=== PATIENT | male | born 1950 | race Caucasian/White ===

== ENCOUNTER 2024-05-28 13:45 | Inpatient (IN) | payer OTHER, MEDICARE, SELFPAY ==
[2024-05-28] VITALS (54 sets, daily range): BP systolic 57–116; BP diastolic 22–82; PULSE 0–127; RESP 14–36; TEMP 35.8–36.5; O2SAT 25–100
--- NOTE | 2024-05-28 13:51 | EDNOTE_ITS ---
ED General RME/HPI General Stated complaint: SOB, HPYOTENSION Time Seen by Provider: 05/28/24 13:48 Arrival date/time: 05/28/24 13:45 RME / HPI RME / HPI narrative: 74 year old male with a history of multivessel CAD, s/p multivessel PCI, prostate cancer with widespread bone metastases, s/p prostatectomy, currently undergoing radiation therapy presents to the ED via ambulance for evaluation of acute onset shortness of breath. According to the EMS report, the patient?s stated that the patient suddenly became short of breath at home. Upon arrival, the fire department found the patient saturating 88% on room air, cyanotic nails and lips, and significant pallor. Blood pressure unable to be measured. In the ED, the patient reports a ground level fall around 2:30 AM today while attempting to get out of bed due to feeling globally weak. He denies any head injury, loss of consciousness, or other neurological deficits. The patient denies fever, chills, chest pain, cough, abdominal pain, nausea, vomiting, diarrhea, urinary symptoms, or back pain. Related Data Home Medications ?Medication ?Instructions ?Recorded ?Confirmed enzalutamide 40 mg capsule (Xtandi) 120 mg PO QDAY 04/21/20 05/02/20 aspirin 81 mg tablet 81 mg PO QDAY 04/29/20 05/02/20 clopidogrel 75 mg tablet (Plavix) 75 mg PO QDAY 04/29/20 05/02/20 metoprolol succinate 50 mg 50 mg PO QDAY 04/29/20 05/02/20 tablet,extended release 24 hr Allergies Allergy/AdvReac Type Severity Reaction Status Date / Time No Known Allergies Allergy Verified 05/02/20 11:06 Review of Systems Review of Systems Narrative Review of Systems: Constitutional: DENIES; Fevers Eyes: DENIES; Loss of vision Head/Ear/Nose: DENIES; Loss of hearing Throat: DENIES; Dysphagia Cardiovascular: DENIES; Chest pain, dyspnea or syncope Respiratory: SEE HPI +shortness of breath Gastrointestinal: DENIES; Rectal bleeding or melena. Genitourinary: DENIES; Dysuria (painful or difficult urination) Musculoskeletal: DENIES; Arthralgia (pain in a joint),; Skin: DENIES; Rash Neurological: SEE HPI +weakness DENIES; Loss of function or movement Psychiatric: DENIES; recent major life stressor, emotional problem, illicit drug use or abuse Endocrinology: DENIES; Weight change Hematologic/Lymphatic: DENIES; Abnormal bruising Allergic/Immunologic: DENIES; Urticaria (hives) Past Medical History Past Medical History CARDIAC: Positive Cardiac Disorders and Angina GASTROINTESTINAL: Positive Gastrointestinal Disorders, Ulcer, Hiatal Hernia and Gastroesophageal Reflux Disease GENITOURINARY: Positive Genitourinary Disorders, Prostate Cancer and Benign Prostatic Hyperplasia MUSCULOSKELETAL: Positive Musculoskeletal Disorders and Degenerative Disk Disease OTHER HISTORY: Positive Shingles, Chemotherapy, Radiation Therapy, Chicken Pox, Mumps, Cancer and Prostate Cancer Surgical History SURGICAL: Positive Cardiac Catheterization and Transurethral Resection Social History SMOKING STATUS: Never smoker ED Exam Narrative Physical exam: Physical Exam: General: Patient is brought in by ambulance for was put on high flow oxygen and transported here and on arrival he is actually breathing better not requiring any assistance. He is quite pale appearing Head & Scalp: Normocephalic, atraumatic. Face: Appears normal and is without lesions, deformity. Ears: Left external pinna appears normal. Right external pinna appears normal. Eyes: The sclera is anicteric. No obvious photophobia. The Left and Right Orbit/Lid/Conjunctiva appears pale otherwise without swelling, discoloration or injection. Nose: The nose is without deformity, discharge or tenderness; Throat: Appears normal. The mucous membranes are pink and moist without exudates, redness or mass seen. The tongue appears normal. Neck: The neck is supple and no apparent mass or adenopathy. Chest: The chest wall is normal in size and symmetry and has no chest wall tenderness or crepitus. The patient displays normal ventilator effort without retractions, accessory muscle use and has adequate air movement bilaterally with no wheezes and no rales. Cardiovascular: Regular rate and rhythm; No murmurs, rubs, or gallops; Gastrointestinal: The abdomen appears normal. No obvious hernias or mass. The abdomen is soft and benign, non-distended, with no pain, no guarding and no rebound tenderness. Bowel sounds are present and normal sounding. No CVA tenderness. Genitourinary: Back/Spine: Normal inspection nontender Extremities/Musculoskeletal/lymphatic: The bilateral upper and lower extremities are warm. There is no evidence of arterial insufficiency. There is no evidence of venous insufficiency/edema. The patient spontaneously moves bilateral upper and lower extremities with no pain and no limitation of movement. There is no apparent, injury or trauma. Skin: The skin is warm, dry and intact. No rashes. No petechia. No purpura. No abnormal bruising. The color is appropriate with no cyanosis. Mental status/Psychiatric: Mental status is appropriate for age. The patient has no apparent delusions, visual hallucinations, no apparent audible hallucinations. The patient has no apparent suicidal thoughts/ideation and no apparent homicidal thoughts/ideation. Neurological: The patient is awake, alert, interactive, cordial, cooperative and is oriented to name and situation. The patient follows commands and answers historical question with no impairment. There is no visual disturbance apparent. The pupils are equal and reactive bilaterally with normal eye movements and no diplopia The bilateral upper and lower extremities have normal strength, normal range of motion and normal functioning. The gait, station and balance are not tested due to acuity and weakness. Course Quality Measures none Orders Category Date Time Status Bedside Blood Glucose NOW Care 05/28/24 13:49 Active Bedside Blood Glucose Q2HX3 Care 05/28/24 15:30 Active EKG (ED ONLY) *Do not use* NOW Care 05/28/24 13:49 Completed EKG (ED ONLY) *Do not use* NOW Care 05/28/24 15:35 Completed Miscellaneous Nursing Order NOW Care 05/28/24 13:49 Active Transfuse,blood/blood products NEEDED Care 05/28/24 14:40 Active Transfuse,blood/blood products NOW Care 05/28/24 14:[address] head/brain wo con Stat Exams 05/28/24 13:49 Completed EKG (ED Only) Stat Exams 05/28/24 13:49 Ordered EKG (ED Only) Stat Exams 05/28/24 15:34 Ordered XR chest 1V portable Stat Exams 05/28/24 13:49 Completed ABG [Arterial Blood Gas] Stat Lab 05/28/24 16:33 Ordered Alcohol, Blood Medical Stat Lab 05/28/24 13:55 Completed Ammonia Stat Lab 05/28/24 13:55 Completed B-Type Natriuretic Peptide Stat Lab 05/28/24 13:55 Completed Blood Culture (Lab) Stat Lab 05/28/24 14:34 Received CBC Stat Lab 05/28/24 13:55 Completed Comprehensive Metabolic Panel Stat Lab 05/28/24 13:55 Completed Drug Screen,Urine Stat Lab 12/19/24 13:49 Ordered Ferritin Stat Lab 05/28/24 13:49 Results Folate Stat Lab 05/28/24 14:34 Completed Iron Stat Lab 05/28/24 13:49 Results Lactate (Lactic Acid) Stat Lab 05/28/24 13:55 Results Procalcitonin Stat Lab 05/28/24 13:55 Completed Prothrombin Time with INR Stat Lab 05/28/24 13:55 Completed Red Blood Cells Stat Lab 05/28/24 14:34 Results Total Iron Binding Capacity Stat Lab 05/28/24 13:49 Results Troponin I Stat Lab 05/28/24 13:55 Completed Troponin I Stat Lab 05/28/24 15:52 Completed Type and Screen Stat Lab 05/28/24 14:34 Results Urinalysis Stat Lab 05/28/24 13:49 Ordered Urinalysis, C/S if Indicated Stat Lab 05/28/24 13:49 Ordered Venous Blood Gas Stat Lab 05/28/24 13:55 Completed Vitamin B12 Stat Lab 05/28/24 14:34 Completed ALBUTEROL RT 0.5ml [Proventil Rt 0.5ml] Med 05/28/24 15:32 Discontinued 5 mg INH X1 ONE Calcium Gluconate 10% Inj Med 05/28/24 15:32 Discontinued 1 gm IV X1 ONE Dextrose 50% Syr [D50w Syringe Abboject] Med 05/28/24 15:32 Discontinued 50 ml IV X1 ONE Insulin Regular Med 05/28/24 15:32 Discontinued 5 unit IV X1 ONE Phytonadione Inj [Vitamin K Inj] Med 05/28/24 14:40 Discontinued 10 mg SC X1 ONE Piper/Tazo 3.375 gm [Zosyn] Med 05/28/24 15:34 Discontinued 3.375 gm in 50 ml IV X1 Sod Polystyrene Sulfon Susp [Kayexalate Susp] Med 05/28/24 15:32 Discontinued 30 gm [place] X1 ONE Sodium Bicarb 8.4% 50ml Vial* Med 05/28/24 15:32 Discontinued 50 meq IV X1 ONE Sodium Chloride 0.9% 1000 ml [Ns] 2,000 ml Med 05/28/24 13:48 Active IV 150 mls/hr Sodium Chloride 0.9% 250 ml [Ns] 234 ml Med 05/28/24 16:51 Discontinued EPINEPHrine Inj [Adrenalin Inj] 4 mg IV 0.1 mcg/kg/min Sodium Chloride 0.9% 250 ml [Ns] 246 ml Med 05/28/24 16:58 Active EPINEPHrine Inj [Adrenalin Inj] 4 mg IV 0.1 mcg/kg/min Sodium Chloride Rt Jeanne 0.9% [NS Rt Jeanne 0.9%] Med 05/28/24 15:32 Discontinued 3 ml INH NOW ONE fentaNYL 2,500 MCG/250 ML BAG [Sublimaze Inj 2,500 MCG/ Med 05/28/24 16:56 Discontinued 250 ML BAG] 2,500 mcg in 250 ml IV .STK-MED fentaNYL 2,500 MCG/250 ML BAG [Sublimaze Inj 2,500 MCG/ Med 05/28/24 17:03 Active 250 ML BAG] 2,500 mcg in 250 ml IV 25 mcg/hr fentaNYL INJ [Sublimaze Inj] Med 05/28/24 16:53 Discontinued 100 mcg .ROUTE .STK-MED ONE fentaNYL INJ [Sublimaze Inj] Med 05/28/24 16:57 Discontinued 50 mcg IVP X1 ONE Vital Signs Vital signs: Vital Signs Temperature 97.7 F 05/28/24 14:04 Pulse Rate 94 05/28/24 14:04 Respiratory Rate 29 H 05/28/24 14:04 Blood Pressure 104/82 05/28/24 14:04 Pulse Oximetry (%) 94 L 05/28/24 14:04 Oxygen Delivery Method Room Air 05/28/24 14:04 Pulse ox is 94% on room air which is adequate. MDM Patient data External records reviewed:: [facility] previous records (I reviewed oncology note on 02/20/2023) and EMS form Clinical information provided by:: patient Social determinants that could affect healthcare access:: none Patient has the following chronic illnesses:: multivessel CAD, s/p multivessel PCI, prostate cancer with widespread bone metastases, s/p prostatectomy, currently undergoing radiation therapy How is presenting disease/condition affected by chronic disease/condition?: e xacerbated by Evaluation data The following diagnostics were reviewed and interpreted by me:: lab results, radiology exam(s) and EKG tracing(s) (EKG @ 14:[address] depression with baseline wander due to respiratory movements, no STEMI) Lab and/or radiology exams considered but not ordered:: None Interpretation Summary: Ordering Physician: Raul Goddard MD Date of Service: 05/28/24 Procedure(s): XR chest 1V portable Accession Number(s): [id number] cc: Raul Goddard MD; Ramy Carreno MD~ Examination: AP chest single view Technique one AP portable semiupright chest single view Exam date and time: May 28, 2024 1437 hours INDICATIONS: Chest pain shortness of breath today., Diagnosis malignant neoplasm prostate FINDINGS: Mild prominence cardiac contour Suspicious for early pneumonia left base Mild elevation right hemidiaphragm All of the bones appear somewhat diffusely sclerotic,. IMPRESSION: Suspicious for early pneumonia left base Widespread osteoblastic metastatic disease Dictated By: Ramy Carreno MD Signed By: <Electronically signed by Ramy Carreno MD in [place]> 05/28/24 1535 = Ordering Physician: Raul Goddard MD Date of Service: 05/28/24 Procedure(s): CT head/brain wo con Accession Number(s): [id number] cc: Raul Goddard MD; Ramy Carreno MD~ Examination: CT brain head without contrast. 2-D sagittal coronal reconstructions Date and time of exam:May 28, 2024 1445 hours INDICATIONS: Episode of loss of consciousness today CTDI: vol (mGy):52.6 DLP: (mGycm):1165 Technique: Multiple CT axial sections of the brain have been obtained, 5 mm slice thickness. Contrast has not been administered. 2-D sagittal, coronal reconstructions have been obtained Low dose protocols were performed. One or more of the following dose reduction techniques were used; automated exposure control, adjustment of the mA and/or KV according to patient size, use of iterative reconstruction technique. Findings: No significant ventricular enlargement. Intra-axial or extra-axial hemorrhage density is not seen. No mass effect or midline shift Basal cisterns are not remarkable. Fourth ventricle is midline. Cranial vault intact. Impression: Negative for acute hemorrhage, mass effect or midline shift Advise clinical correlation and follow-up accordingly Dictated By: Ramy Carreno MD Signed By: <Electronically signed by Ramy Carreno MD in [place]> 05/28/24 1542 Medications Medications considered but not ordered:: None Medication administrations:: Medication Administration History Sodium Chloride (Ns) 2,000 mls @ 150 mls/hr IV .[id number] ONE Stop: 05/29/24 03:07 Last Admin: 05/28/24 14:33 Dose: 150 mls/hr Documented By: AM Epinephrine HCl 4 mg/ Sodium (Chloride) 250 mls @ 33.75 mls/hr IV .Q7H25M PRN; Protocol PRN Reason: Per Protocol Stop: 06/27/24 16:50 Last Admin: 05/28/24 17:03 Dose: 0.1 mcg/kg/min, 33.75 mls/hr Documented By: VRS Fentanyl Citrate (Sublimaze Inj 2,500 Mcg/250 Ml Bag) 2,500 mcg in 250 mls @ 2.5 mls/hr IV .Q24H PRN; Protocol PRN Reason: PER PROTOCOL Stop: 06/02/24 17:02 Discontinued Medications Albuterol (Albuterol Rt 2.5 Mg/0.5 Ml Nebu) 5 mg INH X1 ONE Stop: 05/28/24 15:33 Last Admin: 05/28/24 16:12 Dose: 5 mg Documented By: LO Calcium Gluconate (Calcium Gluconate 10% Inj 1 Gm/10 Ml Vial) 1 gm IV X1 ONE Stop: 05/28/24 15:33 Last Admin: 05/28/24 16:24 Dose: 1 gm Documented By: AM Dextrose (Dextrose 50%-Water Inj 50 Ml Syringe) 50 ml IV X1 ONE Stop: 05/28/24 15:33 Last Admin: 05/28/24 16:17 Dose: 50 ml Documented By: AM Fentanyl Citrate (Fentanyl Cit Inj 50 Mcg/Ml Amp 2ml) 50 mcg IVP X1 ONE Stop: 05/28/24 16:58 Last Admin: 05/28/24 16:59 Dose: 50 mcg Documented By: AM Fentanyl Citrate (Fentanyl Cit Inj 50 Mcg/Ml Amp 2ml) Confirm Administered Dose 100 mcg .ROUTE .STK-MED ONE Stop: 05/28/24 16:54 Last Admin: 05/28/24 17:04 Dose: Not Given Documented By: AM Non-Admin Reason: Override Medication Piperacillin/Tazobactam/Dextrose (Zosyn) 3.375 gm in 50 mls @ 100 mls/hr IV X1 ONE Stop: 05/28/24 16:03 Last Admin: 05/28/24 16:20 Dose: 100 mls/hr Documented By: AM Epinephrine HCl 4 mg/ Sodium (Chloride) 238 mls @ 32.13 mls/hr IV .Q7H25M PRN; Protocol PRN Reason: Per Protocol Stop: 06/27/24 16:50 Fentanyl Citrate (Sublimaze Inj 2,500 Mcg/250 Ml Bag) Confirm Administered Dose 2,500 mcg in 250 mls @ ud IV .STK-MED ONE Stop: 05/28/24 16:57 Insulin Human Regular (Insulin Hum Regular 1 Unit/0.01 Ml (Per Unit)) 5 unit IV X1 ONE Stop: 05/28/24 15:33 Last Admin: 05/28/24 16:18 Dose: Not Given Documented By: AM Non-Admin Reason: Glucose, LOW Phytonadione (Phytonadione Inj 10 Mg/Ml Amp) 10 mg SC X1 ONE Stop: 05/28/24 14:41 Last Admin: 05/28/24 16:21 Dose: 10 mg Documented By: AM Sodium Bicarbonate (Sodium Bicarb Inj 8.4% 1 Meq/Ml Vial 50 Ml) 50 meq IV X1 ONE Stop: 05/28/24 15:33 Last Admin: 05/28/24 16:55 Dose: Not Given Documented By: AM Non-Admin Reason: Other, see note Sodium Chloride (Sodium Chloride Rt Jeanne 0.9% 3 Ml Nebu) 3 ml INH NOW ONE Stop: 05/28/24 15:33 Last Admin: 05/28/24 16:12 Dose: 3 ml Documented By: LO Sodium Polystyrene Sulfonate (Sod Polystyrene Sulfon Susp 15 Gm/60 Ml Btl) 30 gm [place] X1 ONE Stop: 05/28/24 15:33 Last Admin: 05/28/24 16:24 Dose: 30 gm Documented By: AM See above Consultations Consultation(s) initiated? (list below): Yes Consultation #1 (Physician, Specialty, Details): I spoke with resident working with Dr. Arreola. Discussed patients PMHx, HPI, ED course, exam findings, labs, and radiology results. The hospitalist agree to accept the patient for admission. Time: 15:27 Diagnosis Differential Diagnosis ED Complaint MDM: Sepsis, SOB, CHF, PNA, COPD, anemia Most likely diagnosis given after review of the tests above:: Severe anemia Weakness Malignant neoplasm of prostate metastatic to bone elevated lactic acid level Admission Indicated Admission indicated?: indicated Explain why admission is indicated or not indicated:: Patient is critically ill with hyperkalemia severe anemia prostate cancer with bone mets elevated troponin probable recent ischemic injury due to anemia and/or heart disease admitted to ICU team Admission Request Was there a request for admission?: Yes Admission Attestation Admission request attestation: Discussed case with [] from Hospitalist service regarding admission. Discussed patients ED course, exam findings, labs, and radiology results. The Hospitalist [agrees,declines] to accept the patient for admission. Disposition Plan Disposition Plan: Admit Medical Decision Making MDM Narrative MDM Narrative: A quick review of the chart reveals this patient has prostate cancer with metastatic bone disease quite extensive on previous notes. Evidently is followed by Dr. Ramirez at [facility]. Patient was found basically unresponsive at the home called 911 EMS got there felt the patient was in respiratory distress started assisting his respirations transported here with high flow oxygen and by time he got here he was mentating he was not in respiratory distress and he was maintaining his O2 sats with high flow oxygen. He was quite pale on arrival he is on Plavix but there was no history of bleeding that was reported. So medical workup was initiated. Which included a portable chest x-ray soon after arrival which reveals slightly enlarged heart, questionable infiltrate, evidence of diffuse bone mets no effusion poor inspiration CT of the head revealed some atrophy but there is no blood present. Medical workup includes procalcitonin and of 1.16 troponin was quite elevated at 24.3 BNP is 513 also elevated. AST and ALT are elevated 833 and 215 respectively lactic acid is elevated 11.3 patient has significant potassium elevation at 6.7 and medicines were ordered. Carbon dioxide of 10.7 consistent with a metabolic acidosis. And was normal at that time. Venous blood gas pH is 7.26 pCO2 of 24 PT/INR 15.4 and 1.4. And most importantly his white count was 11.9 but hemoglobin came back at 5.9 significant less than his baseline year and a half ago. A rectal exam was done by myself which revealed no blood there is brown stool. There is no fecal impaction and there is no obvious rectal mass. But no it is prostate is high riding and hard to reach. Patient is a full code and confirmed by EMS and with the and patient present he is going to get 2 units of blood as soon as possible patient was verbally and orally consented. Because of the hyperkalemia acute renal failure and presumably is from his anemia though he is not complain of any chest pain at this time. Initial EKG showed a lot of baseline wander in due to his respiratory distress. I spoke with the hospitalist about admission I also spoke with Dr. Andres critical care About consulting and they are going to come down see this patient make a decision of where would be the best place for him to stay for the next 12 hours and start this out further. Patient will be critical care for obvious reasons. Clinically he is improved since he has been on oxygen and also got some fluids. I Dr. Faria's team came down and saw this patient at approximately 1600 hrs. They decided to minimally ICU and while they are working him up in the room, evidently he bradycardia down and went into cardiac arrest and the ICU team is currently reassessing the patient at 1640 hrs. and the care was transferred to the ICU team upon their arrival. Differential Diagnosis Differential Diagnosis: Sepsis, SOB, CHF, PNA, COPD, anemia Lab Data 05/28/24 13:55 05/28/24 13:55 Labs: Lab Results 05/28/24 05/28/24 05/28/24 Range/Units 13:49 13:55 14:30 WBC 11.9 H (3.8-10.6) Thou/mm3 RBC 2.09 L (4.50-5.90) Miln/mm3 Hgb 5.9 L* (13.5-16.0) g/dL Hct 19.8 L* (41.0-53.0) % MCV 95 (80-100) fL MCH 28.2 (25.0-35.0) pg MCHC 29.8 L (31.0-37.0) g/dl RDW Std Deviation 65.4 H (35.1-43.9) fL Plt Count 166 (140-440) Thou/mm3 Neut % (Auto) 45 (37-80) % Lymph % (Auto) 46 (10-50) % [place] % (Auto) 6 (0-12) % Eos % (Auto) 1 (0-10) % Baso % (Auto) 0 (0-2.5) % Neut # (Auto) 5.4 (1.8-7.7) Thou/mm3 Lymph # (Auto) 5.5 H (1.0-4.8) Thou/mm3 [place] # (Auto) 0.8 (0.0-0.8) Thou/mm3 Eos # (Auto) 0.1 (0.0-0.5) Thou/mm3 Baso # (Auto) 0.0 (0.0-0.2) Thou/mm3 Immature Gran # (Auto) 0.26 H (0.00-0.00) Thou/mm3 Absolute Nucleated RBC 0.20 H (0.00-0.00) Thou/mm3 Immature Gran % 2 H (0-0) % Nucleated RBC % 2 H (0) /100 WBC PT 15.4 H (9.0-12.2) Seconds INR 1.4 H (0.9-1.3) Puncture Site Cancelled ABG pH Cancelled ABG pCO2 Cancelled ABG pO2 Cancelled ABG HCO3 Cancelled ABG O2 Saturation Cancelled ABG Base Excess Cancelled VBG pH 7.26 L (7.33-7.66) VBG pCO2 24 L (36-56) mmHg VBG pO2 58 (15-58) mmHg VBG O2 Sat (Denys) 80 L (96-97) % VBG Base Excess -15 L (-3-3) Oxygen Liter Flow Cancelled FiO2 Cancelled Sodium 130 L (136-145) mMol/L Potassium 6.7 H* (3.4-5.1) mMol/L Chloride 98 (98-107) mMol/L Carbon Dioxide 10.7 L* (20.0-31.0) mMol/L Anion Gap 21 H (7-16) BUN 39 H (9-23) mg/dL Creatinine 2.3 H (0.6-1.3) mg/dL Estim Creat Clear Calc Not Performed. eGFR 29 L (60 - ) See Note BUN/Creatinine Ratio 17 (12-20) Ratio Glucose 75 (74-106) mg/dL Calculated Osmolality 269 L (275-295) Lactic Acid 11.3 H* (0.4-2.0) mMol/L Calcium 9.3 (8.3-10.6) mg/dL Corrected Calcium 9.3 (8.5-10.1) mg/dL TIBC 261 (250-425) mcg/dL Ferritin > 8250 H (10.5-307.3) ng/mL Total Bilirubin 1.1 (0.3-1.2) mg/dL AST 833 H* (0-34) U/L ALT 215 H (10-49) U/L Alkaline Phosphatase 565 H (46-116) U/L Ammonia 43 H (11-32) uMol/L Troponin I 24.324 H* (0.0-0.045) ng/mL B-Natriuretic Peptide 513 H* (0-100) pg/mL Total Protein 7.1 (5.7-8.2) gm/dL Albumin 4.5 (3.4-4.8) gm/dL Globulin 2.6 (2.3-3.5) gm/dL Albumin/Globulin Ratio 1.7 (1.2-2.2) Vitamin B12 (211-911) pg/mL Folate (>5.38) ng/mL Procalcitonin 1.16 H (0.0-0.49) ng/ml Ethyl Alcohol < 3.0 (0-10.0) mg/dL Blood Type Antibody Screen Crossmatch Blood Bank Wristband ID 05/28/24 05/28/24 Range/Units 14:34 15:52 WBC (3.8-10.6) Thou/mm3 RBC (4.50-5.90) Miln/mm3 Hgb (13.5-16.0) g/dL Hct (41.0-53.0) % MCV (80-100) fL MCH (25.0-35.0) pg MCHC (31.0-37.0) g/dl RDW Std Deviation (35.1-43.9) fL Plt Count (140-440) Thou/mm3 Neut % (Auto) (37-80) % Lymph % (Auto) (10-50) % [place] % (Auto) (0-12) % Eos % (Auto) (0-10) % Baso % (Auto) (0-2.5) % Neut # (Auto) (1.8-7.7) Thou/mm3 Lymph # (Auto) (1.0-4.8) Thou/mm3 [place] # (Auto) (0.0-0.8) Thou/mm3 Eos # (Auto) (0.0-0.5) Thou/mm3 Baso # (Auto) (0.0-0.2) Thou/mm3 Immature Gran # (Auto) (0.00-0.00) Thou/mm3 Absolute Nucleated RBC (0.00-0.00) Thou/mm3 Immature Gran % (0-0) % Nucleated RBC % (0) /100 WBC PT (9.0-12.2) Seconds INR (0.9-1.3) Puncture Site ABG pH ABG pCO2 ABG pO2 ABG HCO3 ABG O2 Saturation ABG Base Excess VBG pH (7.33-7.66) VBG pCO2 (36-56) mmHg VBG pO2 (15-58) mmHg VBG O2 Sat (Denys) (96-97) % VBG Base Excess (-3-3) Oxygen Liter Flow FiO2 Sodium (136-145) mMol/L Potassium (3.4-5.1) mMol/L Chloride (98-107) mMol/L Carbon Dioxide (20.0-31.0) mMol/L Anion Gap (7-16) BUN (9-23) mg/dL Creatinine (0.6-1.3) mg/dL Estim Creat Clear Calc eGFR (60 - ) See Note BUN/Creatinine Ratio (12-20) Ratio Glucose (74-106) mg/dL Calculated Osmolality (275-295) Lactic Acid (0.4-2.0) mMol/L Calcium (8.3-10.6) mg/dL Corrected Calcium (8.5-10.1) mg/dL TIBC (250-425) mcg/dL Ferritin (10.5-307.3) ng/mL Total Bilirubin (0.3-1.2) mg/dL AST (0-34) U/L ALT (10-49) U/L Alkaline Phosphatase (46-116) U/L Ammonia (11-32) uMol/L Troponin I 29.781 H* D (0.0-0.045) ng/mL B-Natriuretic Peptide (0-100) pg/mL Total Protein (5.7-8.2) gm/dL Albumin (3.4-4.8) gm/dL Globulin (2.3-3.5) gm/dL Albumin/Globulin Ratio (1.2-2.2) Vitamin B12 1946 H (211-911) pg/mL Folate 22.03 (>5.38) ng/mL Procalcitonin (0.0-0.49) ng/ml Ethyl Alcohol (0-10.0) mg/dL Blood Type A Positive Antibody Screen NEGATIVE Crossmatch See Detail Blood Bank Wristband ID Yes Critical Care Time Critical Care Time Critical Care Time: Yes Total Critical Care Time (min.): 75 Attestation: The high probability of sudden, clinically significant deterioration in the patient's condition required the highest level of my preparedness to intervene urgently. The services I provided to this patient were to treat and/or prevent clinically significant deterioration. Services included the following: chart data review, reviewing nursing notes and/or old charts, documentation time, skin care consultant collaboration regarding findings and treatment options, medication orders and management, direct patient care, vital sign assessments and ordering, interpreting and reviewing diagnostic studies and lab tests. Aggregate critical care time includes only time during which I was engaged in work directly related to the patient's care, as described above, whether at bedside or elsewhere in the Emergency Department. It did not include time spent performing other reported procedures or the services of residents, students, nurses or physician assistants. Patient required several evaluations and reevaluations along with multiple consultations as mentioned above and is consumed at least 75 minutes of critical care time. Also because we were unable to get a Boo and because he has a prostate issues and or cancer no UA was able to be collected at this time so we will start him on some Zosyn. Since his lactic acid is so elevated. Discharge Plan Plan Patient Disposition: Admit Acute Care w/in Hospital Disposition Comment: Admit ICU Dr. oCte Prescriptions/Referrals Prescriptions/Med Rec: No Action metoprolol succinate 50 mg Tablet Extended Release 24 Hr 50 mg PO QDAY clopidogrel [Plavix] 75 mg Tablet 75 mg PO QDAY aspirin 81 mg Tablet 81 mg PO QDAY Xtandi 40 mg Capsule 120 mg PO QDAY Problem List Clinical Impression: Severe anemia, Weakness, Malignant neoplasm of prostate metastatic to bone, Elevated lactic acid level, Acute kidney injury, Acute hyperkalemia, Elevated troponin Patient/Caregiver Discharge Instructions Print Language: Tajik Stand Alone Forms: Maty Award Info., Patient Portal Info Letter
[2024-05-28 14:24] LABS: Base Excess, Venous -15 (-3-3); O2 Saturation, Venous 80 % (96-97); PCO2, Venous 24 mmHg (36-56); PO2, Venous 58 mmHg (15-58); pH, Venous 7.26 (7.33-7.66)
[2024-05-28 14:29] LABS: Basophils % (Auto) 0 % (0-2.5); Eosinophils # (Auto) 0.1 Thou/mm3 (0.0-0.5); Eosinophils % (Auto) 1 % (0-10); Immature Granulocytes % (Auto) 2 % (0-0); Immature Granulocytes Auto 0.26 Thou/mm3 (0.00-0.00); Lymphocytes # (Auto) 5.5 Thou/mm3 (1.0-4.8); Lymphocytes % (Auto) 46 % (10-50); Mean Corpuscular HGB Conc 29.8 g/dl (31.0-37.0); Mean Corpuscular Hemoglobin 28.2 pg (25.0-35.0); Mean Corpuscular Volume 95 fL (80-100); Monocytes # (Auto) 0.8 Thou/mm3 (0.0-0.8); Monocytes % (Auto) 6 % (0-12); Neutrophils # (Auto) 5.4 Thou/mm3 (1.8-7.7); Neutrophils % (Auto) 45 % (37-80); Nucleated Red Blood Cell % 2 /100 WBC (0); Platelet Count 166 Thou/mm3 (140-440); RDW Standard Deviation 65.4 fL (35.1-43.9); Red Blood Count 2.09 Miln/mm3 (4.50-5.90); White Blood Count 11.9 Thou/mm3 (3.8-10.6)
[2024-05-28] MEDS: SODIUM CHLORIDE 0.9% 1000 ML 2,000 ML 150 ML IV (14:33)
[2024-05-28 14:35] LABS: Hematocrit 19.8 % (41.0-53.0); Hemoglobin 5.9 g/dL (13.5-16.0)
[2024-05-28 14:41] LABS: Lactate (Lactic Acid) 11.3 mMol/L (0.4-2.0)
[2024-05-28 14:45] LABS: Ammonia 43 uMol/L (11-32)
--- NOTE | 2024-05-28 14:46 | PC.NURSE ---
pt off to CT. RT contacted about redraw needed for ABG.
[2024-05-28 14:47] LABS: INR 1.4 (0.9-1.3); Prothrombin Time 15.4 Seconds (9.0-12.2)
--- NOTE | 2024-05-28 14:51 | PC.NURSE ---
lactic 11.6, hgb 5.9/ hct 19.8, Dr. Orozco aware.
[2024-05-28 15:06] LABS: B-Type Natriuretic Peptide 513 pg/mL (0-100)
[2024-05-28 15:19] LABS: Alanine Aminotransferase 215 U/L (10-49); Albumin, Serum 4.5 gm/dL (3.4-4.8); Albumin/Globulin Ratio 1.7 (1.2-2.2); Alcohol, Blood Medical < 3.0 mg/dL (0-10.0); Alkaline Phosphatase 565 U/L (46-116); Anion Gap 21 (7-16); Aspartate Amino Transferase 833 U/L (0-34); BUN/Creatinine Ratio 17 Ratio (12-20); Bilirubin,Total 1.1 mg/dL (0.3-1.2); Blood Urea Nitrogen 39 mg/dL (9-23); Calcium 9.3 mg/dL (8.3-10.6); Calcium (Corrected) 9.3 mg/dL (8.5-10.1); Chloride 98 mMol/L (98-107); Creatinine (Component) 2.3 mg/dL (0.6-1.3); Globulin 2.6 gm/dL (2.3-3.5); Glucose 75 mg/dL (74-106); Osmolality,Calculated 269 (275-295); Procalcitonin 1.16 ng/ml (0.0-0.49); Sodium 130 mMol/L (136-145); Total Protein 7.1 gm/dL (5.7-8.2); eGFR 29 See Note
[2024-05-28 15:23] LABS: Carbon Dioxide 10.7 mMol/L (20.0-31.0); Potassium 6.7 mMol/L (3.4-5.1)
[2024-05-28 15:24] LABS: Troponin I 24.324 ng/mL (0.0-0.045)
[2024-05-28] MEDS: ALBUTEROL RT 2.5 MG/0.5 ML NEBU 5 MG INH (16:12)
[2024-05-28] MEDS: SODIUM CHLORIDE RT SOL 0.9% 3 ML NEBU INH (16:12)
[2024-05-28] MEDS: DEXTROSE 50%-WATER INJ 50 ML SYRINGE IV (16:17)
[2024-05-28] MEDS: PIPER/TAZO 3.375 GM 3.375 GM/50 ML BAG IV (16:20)
[2024-05-28] MEDS: PHYTONADIONE INJ 10 MG/ML AMP SC (16:21)
[2024-05-28] MEDS: SOD POLYSTYRENE SULFON SUSP 15 GM/60 ML BTL 30 GM PR (16:24)
[2024-05-28] MEDS: CALCIUM GLUCONATE 10% INJ 1 GM/10 ML VIAL IV (16:24)
[2024-05-28 16:32] LABS: Folate 22.03 ng/mL (>5.38); Vitamin B12 1946 pg/mL (211-911)
--- NOTE | 2024-05-28 16:38 | PC.CC ---
ASWLou responded to code blue. ASW attempted to make contact with patient's , Elizabeth Kingston 3x via telephone no answer or voicemail set up.
[2024-05-28 16:41] LABS: Troponin I 29.781 ng/mL (0.0-0.045)
--- NOTE | 2024-05-28 16:50 | PC.CC ---
ASWLou made contact with [place] [employer] Dispatch and requested a courtesy contact with patient's as we have been unable to make telephone contact with her and the patient is critical code blue. [employer] Dispatch Veronica reports I will need to make contact with [employer] based off the address. ASW made contact with [employer] Dispatch Yaneth who reports there will be a [place] going out to the home.
[2024-05-28] MEDS: fentaNYL CIT INJ 50 mCg/ML AMP 2ML 25 MCG IV (16:57)
[2024-05-28 17:03] LABS: Ferritin > 8250 ng/mL (10.5-307.3); Total Iron Binding Capacity 261 mcg/dL (250-425)
[2024-05-28] MEDS: EPINEPHRINE IV (17:03)
[2024-05-28] MEDS: SODIUM CHLORIDE 0.9% IV (17:03)
--- NOTE | 2024-05-28 17:12 | PC.CC ---
Patient's Elizabeth made telephone contact with ASW and reports she will be returning back to the hospital.
[2024-05-28 17:29] LABS: Reflex Lactate? Y
--- NOTE | 2024-05-28 17:34 | XR_ITS ---
Examination: AP chest single view TECHNIQUE: AP portable supine chest single view Exam date and time: May 28, 2024 1744 hours Comparison May 28, 2024 1457 hours INDICATIONS: Hypoxic respiratory failure, postintubation, episodes loss of consciousness today FINDINGS: Endotracheal tube tip 5.7 cm above lillian Moderate vascular congestion including central vascular engorgement Mild prominence left ventricle Mild opacity right base Apparent left internal jugular central line, projecting in the left subclavian vein IMPRESSION: Endotracheal tube tip 5.7 cm above lillian Moderate vascular congestion Mild opacity right base, consider mild aspiration pneumonia Apparent left internal jugular central line, tip in the left subclavian vein, no pneumothorax
--- NOTE | 2024-05-28 18:01 | XR_ITS ---
Examination: AP chest single view Technique: AP portable supine chest single view Exam date and time: May 28, 2024 1844 hrs. Comparison May 28, 2024 1744 hrs. Indications: Hypoxic respiratory failure Findings: Currently mild bibasilar pneumonia Mild prominence left ventricle Endotracheal tube tip 4.8 cm above lillian Impression: Mild bibasilar pneumonia, consider bilateral aspiration pneumonia
[2024-05-28 18:10] LABS: Base Excess, Venous -24 (-3-3); O2 Saturation, Venous 77 % (96-97); PCO2, Venous 42 mmHg (36-56); PO2, Venous 66 mmHg (15-58); pH, Venous 6.88 (7.33-7.66)
[2024-05-28] MEDS: PROPOFOL 1,000 MG IVPB 1,000 MG/100 ML VIAL 2.7 MG IV (18:34)
--- NOTE | 2024-05-28 18:37 | PD.INTPROC ---
Procedures Procedure Date / Time 05/28/24 1837 Central Line Placement Left IJ: Indication(s): shock and other (cardiac arrest) Informed consent obtained: implied (procedure done under emergency circumstances without the time to obtain consent) Time out done, and the following verified: procedure Patient placed on monitor/pulse ox: Yes Hand Hygiene: alcohol-based hand rub Max Sterile Barrier Techniques used: cap, mask, sterile gown, sterile gloves and sterile full body drape Central line prep: Chlorhexidine scrub Local anesthesia used: other anesthetic Amount of anesthesia used (mL): 5 Ultrasound used for placement: Yes Sterile Technique if Ultrasound used, including sterile gel: yes Central line lumen inserted: triple Post procedure: sutured in place, good blood return, all ports aspirated, flushed, capped and sterile dressing applied Patient tolerated procedure: well and other (central line placed in setting of code blue post ROSC but hypotensive on epinephrine gtt. catheter position in left subclavian vein - will be used for emergency medications and a new catheter will be placed when appropriate) EBL(ml): 5 Complications: none Procedure comment: see above
[2024-05-28] MEDS: fentaNYL 2,500 MCG/250 ML BAG 2,500 MCG/250 ML BAG IV (19:00)
--- NOTE | 2024-05-28 19:06 | ESHP_ITS ---
<Statement entered by Semaj Summers MD - 05/29/24 13:59> TOTAL CC TIME: 125 MIN I saw and evaluated the patient. I reviewed the resident?s note and agree with findings and plan as documented in the resident?s note. Upon my evaluation, this patient had a high probability of imminent or life- threatening deterioration due to cardiac arrest and cardiogenic shock which required my direct attention, intervention, and personal management. This time is exclusive of time spent on procedures, which are documented separately if performed. Called by the emergency department to evaluate the patient. History of prostate cancer with bony metastases. Lab data identified severe anemia and elevated troponin with ST depressions on initial chest x-ray. Patient was seen and examined at the bedside in emergency room bed #4. During the first few minutes of our discussions with the patient and after he was seated upright by the nurse, the patient developed declining level of consciousness. I immediately felt for a pulse and the ultrasound was already in the room as we were planning on performing a bedside informal echo. left ventricular ejection fraction was estimated at 10% or less and then the patient went asystolic. CPR was performed immediately. After prolonged ACLS efforts ROSC was established. I suspect his cardiac arrest was due to his acute myocardial infarction, complicated by severe anemia with severe lactic acidemia The patient's had been informed over the phone by medical staff members and she informed the medical team that he was a DNR/DNI Continue medical supportive care treatment including blood cell transfusions were being administered. Due to the profound anemia we held off on heparin drip and aspirin as we were not sure if blood loss was acute or not. He was placed on an epinephrine drip And was intubated at bedside after ROSC was established Documentation for date of: 05/28/24 HPI History of Present Illness History of present illness: The patient is a 74-year-old male with significant past medical history of stage IV metastatic prostate carcinoma, on chemotherapy Xtandi, HTN, HLD, multivessel CAD s/p stent placement in 2019 presented to ED on 05/28/2024 with chief complaint of generalized weakness, after being found unconscious at the ground by the . The patient is a poor historian, and history was obtained from chart review and interviewing patient. The patient also complained of mild pressure-like chest pain and over bilateral shoulders, that he reported has been going on for past few months. He also admitted that he has been having dark tarry stool for past month. During interview, patient passed out and coded. CODE BLUE was initiated, and ICU team present at site started CPR. Patient received multiple doses of 1 mg epinephrine push, followed by multiple shock for V-fib. Patient finally achieved ROSC, and left IJ central line was placed. In the ED, vitals were significant for pulse 94 and RR 29. Labs were significant for hemoglobin 5.9, hematocrit 19.8, PT 15.4 and INR 1.4. VBG was significant for pH 7.26, pCO2 24, pO2 58 and chemistry panel significant for potassium 6.7, bicarb 10.7, anion gap 21, BUN 39, creatinine 2.3, lactic acid 11.3, AST 833, ALT 215, ALP 565, BNP 513, troponin 24.324 and Pro-Glynn 1.16. Initial chest x-ray was suspicious for early pneumonia left base, head CT was negative. The patient received 2 L of IV normal saline bolus, regular insulin 5 units IV x 1, dextrose 50 mL IV x 1, albuterol 5 Mg INH x 1, calcium gluconate 1 g IV x 1 for hyperkalemia, and ICU team was consulted for further management of patient. PMH: As mentioned above SHX: Unobtainable Social history: Unobtainable Medications: To be reconciled Review of Systems Review of Systems ROS Unobtainable: due to endotracheal tube Exam Vital Signs Temp Pulse Resp BP Pulse Ox O2 Del Method O2 Flow Rate 96.4 F L 103 H 20 74/51 L 100 Room Air 5 05/28/24 15:15 05/28/24 18:59 05/28/24 18:59 05/28/24 18:59 05/28/24 18:43 05/28/24 14:04 05/28/24 16:12 FiO2 100 05/28/24 18:43 Narrative Exam General: Pale looking, Sedated, intubated and mechanically ventilated HEENT: Moist mucous membranes, oropharynx clear Neck: Supple, No masses, No JVD CVS: Postresuscitation, S1S2 Regular rate and rhythm, No murmurs, rubs or gallops Lungs: Mild rhonchi throughout the lung field, intubated and mechanically ventilated Abd: Soft, NT/ND, +BS, no organomegaly Ext: 1+ peripheral edema, warm and well perfused Skin: No rash Psych: Unobtainable Results: Labs 05/28/24 13:55 05/28/24 18:01 Labs: Short CBC 05/28/24 Range/Units 13:55 WBC 11.9 H (3.8-10.6) Thou/mm3 Hgb 5.9 L* (13.5-16.0) g/dL Hct 19.8 L* (41.0-53.0) % Plt Count 166 (140-440) Thou/mm3 BMP 05/28/24 13:55 Sodium 130 L Potassium 6.7 H* Chloride 98 Carbon Dioxide 10.7 L* BUN 39 H Creatinine 2.3 H Glucose 75 Calcium 9.3 Cardiac Enzymes 05/28/24 05/28/24 Range/Units 13:55 15:52 Troponin I 24.324 H* 29.781 H* D (0.0-0.045) ng/mL Liver Function 05/28/24 Range/Units 13:55 Total Bilirubin 1.1 (0.3-1.2) mg/dL AST 833 H* (0-34) U/L ALT 215 H (10-49) U/L Alkaline Phosphatase 565 H (46-116) U/L Albumin 4.5 (3.4-4.8) gm/dL ABG Interpretation ABG results: 05/28/24 05/28/24 05/28/24 13:55 14:30 18:01 ABG pH Cancelled ABG pCO2 Cancelled ABG pO2 Cancelled ABG HCO3 Cancelled ABG O2 Saturation Cancelled ABG Base Excess Cancelled VBG pH 7.26 L 6.88 L VBG pCO2 24 L 42 D VBG pO2 58 66 H VBG Base Excess -15 L -24 L Quality Measures Quality Measures none Advance care planning discussed with:: spouse Medications Home Medications and Allergies Home Medications ?Medication ?Instructions ?Recorded ?Confirmed ?Type enzalutamide 40 mg capsule (Xtandi) 120 mg PO QDAY 04/21/20 05/02/20 History aspirin 81 mg tablet 81 mg PO QDAY 04/29/20 05/02/20 History clopidogrel 75 mg tablet (Plavix) 75 mg PO QDAY 04/29/20 05/02/20 History metoprolol succinate 50 mg 50 mg PO QDAY 04/29/20 05/02/20 History tablet,extended release 24 hr Allergies Allergy/AdvReac Type Severity Reaction Status Date / Time No Known Allergies Allergy Verified 05/02/20 11:06 Visit Medications Acetaminophen (Acetaminophen 325 Mg Tablet) 650 mg PO Q4HR PRN PRN Reason: PAIN SCALE 1-3 (mild Stop: 06/27/24 17:59 Acetaminophen (Acetaminophen Supp 650 Mg Supp) 650 mg [place] Q4HR PRN PRN Reason: PAIN SCALE 1-3 (mild Stop: 06/27/24 17:59 Al Hydrox/Mg Hydrox/Simethicone (Mg Hyd/Al Hyd/Michael (Maalox Reg) Susp 30 Ml Udc) 30 ml PO Q4HR PRN PRN Reason: Heartburn or Upset Stomach Stop: 06/27/24 17:59 Sodium Chloride (Ns) 2,000 mls @ 150 mls/hr IV .[id number] ONE Stop: 05/29/24 03:07 Last Infusion: 05/28/24 18:51 Dose: 150 mls/hr Epinephrine HCl 4 mg/ Sodium (Chloride) 250 mls @ 33.75 mls/hr IV .Q7H25M PRN; Protocol PRN Reason: Per Protocol Stop: 06/27/24 16:50 Last Titration: 05/28/24 18:50 Dose: 0.16 mcg/kg/min, 54 mls/hr Fentanyl Citrate (Sublimaze Inj 2,500 Mcg/250 Ml Bag) 2,500 mcg in 250 mls @ 2.5 mls/hr IV .Q24H PRN; Protocol PRN Reason: PER PROTOCOL Stop: 06/02/24 18:10 Propofol (Diprivan Ivpb) 1,000 mg in 100 mls @ 2.7 mls/hr IV .Q24H PRN; Protocol PRN Reason: PER PROTOCOL Stop: 06/27/24 18:10 Last Admin: 05/28/24 18:34 Dose: 5 mcg/kg/min, 2.7 mls/hr Magnesium Hydroxide (Milk Of Magnesia Susp 30 Ml Udc) 30 ml PO QDAY PRN PRN Reason: CONSTIPATION Stop: 06/27/24 17:59 Nitroglycerin (Nitroglycerin 0.4 Mg Subl Btl #25) 0.4 mg SL Q5MIN PRN PRN Reason: CHEST PAIN Pantoprazole Sodium (Pantoprazole Inj 40 Mg Vial) 40 mg IVP QDAY [facility] Stop: 06/27/24 18:14 Pharmacy Consult (Pharmacy Renal Dose Adjustment 1 Ea) 1 each XX QDAY [facility] Stop: 06/27/24 18:14 Discontinued Medications Albuterol (Albuterol Rt 2.5 Mg/0.5 Ml Nebu) 5 mg INH X1 ONE Stop: 05/28/24 15:33 Last Admin: 05/28/24 16:12 Dose: 5 mg Calcium Gluconate (Calcium Gluconate 10% Inj 1 Gm/10 Ml Vial) 1 gm IV X1 ONE Stop: 05/28/24 15:33 Last Admin: 05/28/24 16:24 Dose: 1 gm Dextrose (Dextrose 50%-Water Inj 50 Ml Syringe) 50 ml IV X1 ONE Stop: 05/28/24 15:33 Last Admin: 05/28/24 16:17 Dose: 50 ml Fentanyl Citrate (Fentanyl Cit Inj 50 Mcg/Ml Amp 2ml) 50 mcg IVP X1 ONE Stop: 05/28/24 16:58 Last Admin: 05/28/24 16:59 Dose: 50 mcg Piperacillin/Tazobactam/Dextrose (Zosyn) 3.375 gm in 50 mls @ 100 mls/hr IV X1 ONE Stop: 05/28/24 16:03 Last Admin: 05/28/24 16:20 Dose: 100 mls/hr Epinephrine HCl 4 mg/ Sodium (Chloride) 238 mls @ 32.13 mls/hr IV .Q7H25M PRN; Protocol PRN Reason: Per Protocol Stop: 06/27/24 16:50 Insulin Human Regular (Insulin Hum Regular 1 Unit/0.01 Ml (Per Unit)) 5 unit IV X1 ONE Stop: 05/28/24 15:33 Last Admin: 05/28/24 16:18 Dose: Not Given Phytonadione (Phytonadione Inj 10 Mg/Ml Amp) 10 mg SC X1 ONE Stop: 05/28/24 14:41 Last Admin: 05/28/24 16:21 Dose: 10 mg Sodium Bicarbonate (Sodium Bicarb Inj 8.4% 1 Meq/Ml Vial 50 Ml) 50 meq IV X1 ONE Stop: 05/28/24 15:33 Last Admin: 05/28/24 16:55 Dose: Not Given Sodium Chloride (Sodium Chloride Rt Jeanne 0.9% 3 Ml Nebu) 3 ml INH NOW ONE Stop: 05/28/24 15:33 Last Admin: 05/28/24 16:12 Dose: 3 ml Sodium Polystyrene Sulfonate (Sod Polystyrene Sulfon Susp 15 Gm/60 Ml Btl) 30 gm W[place] X1 ONE Stop: 05/28/24 15:33 Last Admin: 05/28/24 16:24 Dose: 30 gm Assessment & Plan Plan The patient is a 74-year-old male with significant past medical history of stage IV metastatic prostate carcinoma, on chemotherapy Xtandi, HTN, HLD, multivessel CAD s/p stent placement in 2019 presented to ED on 05/28/2024 with chief complaint of generalized weakness, after being found unconscious at the ground by the and was admitted to ICU for further management of s/p cardiac arrest 2/2 lactic acidosis 2/2 hemorrhagic shock in the setting of severe symptomatic acute blood loss anemia Neuro: Sedated and mechanically ventilated -At baseline patient is ANO x 3 and independent -On fentanyl and propofol drip to maintain RASS of -1 Cardio: #S/p cardiac arrest #Hemorrhagic shock #Cardiogenic shock Secondary to severe lactic acidosis secondary to symptomatic acute blood loss anemia -CODE BLUE was initiated in the ED by ICU attending, and patient received ROSC after multiple pushes of epinephrine and shocks -Patient is on epinephrine drip -Treat underlying cause that is severe lactic acidosis secondary to symptomatic acute blood loss anemia #NSTEMI Secondary to acute blood loss anemia leading to lactic acidosis in the setting of multivessel CAD Presented with troponin level of 24.324 that trended up to 29.7 Patient also complained of chest pain and bilateral shoulder pain that has been going on for past month EKG was significant for NSTEMI -Cardiology consultation done with Dr. Hathaway, however the patient is not a candidate for heparin drip in the setting of severe acute symptomatic blood loss anemia -Continue to trend troponin -Treat underlying cause #Multivessel CAD s/p stents in 2019 -We will hold on antiplatelet due to concern for acute symptomatic blood loss anemia #History of hypertension -Currently holding home antihypertensive in the setting of cardiogenic shock #History of hyperlipidemia -We will resume statins when patient is stable Pulm: #Community-acquired pneumonia Pneumonia less likely, given the patient did not complain of any respiratory distress, no fever -Started on Zosyn 3.375 g every 6 hourly, doses adjusted for MARTA -Will continue to monitor -Patient is currently sedated and intubated GI: #Acute GI bleed Etiology unknown, likely secondary to long-term use of aspirin and clopidogrel in the setting of severe CAD -We will continue the patient on IV Protonix 40 Mg twice daily -Continue to monitor for any further signs of GI bleed -Once the patient is more stable, we will consult GI Dr. Colvin #Elevated liver enzymes Secondary to hemorrhagic shock further complicated by cardiogenic shock Presented with AST/ALT 833/215 and ALP 565 that trended up to 2176/948/532. -Maintain MAP greater than 6 -We will continue to monitor liver enzymes #Hyperammonemia Likely secondary to acute GI bleed -Continue to monitor clinically Renal: #High anion gap metabolic acidosis 2/2 #Severe lactic acidosis 2/2 hemorrhagic shock secondary to acute blood loss anemia secondary to acute GI bleed Patient presented with lactic acid of 11.3 that trended up to 22.0 Initial VBG was significant for pH 7.26, pCO2 24 -Patient received 2 pushes of sodium bicarb 50 Mg IV -Trend lactic acid every 4 hourly -Treat underlying cause #MARTA Prerenal secondary to acute blood loss anemia, further complicated by shock Presented with creatinine of 2.3 that trended up to 2.7 -Patient received 2 unit of IV normal saline and 2 units of PRBC -Continue to monitor renal panel -Avoid nephrotoxic drugs -Treat underlying cause #Hyperkalemia Secondary to acute blood loss anemia Presented with potassium of 6.7 that trended down to 5.2 -Patient received regular insulin 5 units IV x 1, dextrose 50% 50 cc IV x 1, albuterol 5 cc INH x 1, and calcium gluconate 1 g x 1 in the ED -Continue to monitor renal panel Hematology/oncology: #Severe symptomatic acute blood loss anemia Secondary to GI bleed Patient presented with hemoglobin 5.9, and reported has been having tarry dark stool for past 1 month 2 units PRBC transfused -As per GI -Continue to monitor H&H and transfuse if less than 8, in the setting of severe coronary artery disease #Metastatic prostate cancer -Patient on chemotherapy -To be managed as an outpatient Endo: No active condition ID: Pro-Glynn 1.16 -On Zosyn for possible pneumonia -Blood and sputum cultures ordered MSK/skin -Pale looking his skin secondary to severe symptomatic blood loss anemia -Continue to treat underlying cause Health maintenance: Dispo: Patient admitted to ICU for further management of s/p cardiac arrest secondary to lactic acidosis secondary to severe symptomatic acute blood loss anemia secondary to acute GI bleed DVT phylaxis: SCDs CODE STATUS: DNR/DNI Diet: N.p.o. GI prophylaxis: Protonix 40 Mg IV twice daily Lines: Left IJ central line, PIVs The patient's management plan was discussed with my attending physician MD Jason Garrison MD, PGY2
[2024-05-28 19:15] LABS: Alanine Aminotransferase 948 U/L (10-49); Albumin, Serum 3.5 gm/dL (3.4-4.8); Albumin/Globulin Ratio 1.8 (1.2-2.2); Alkaline Phosphatase 532 U/L (46-116); Anion Gap 29 (7-16); Aspartate Amino Transferase 2176 U/L (0-34); BUN/Creatinine Ratio 16 Ratio (12-20); Blood Urea Nitrogen 42 mg/dL (9-23); Calcium 8.6 mg/dL (8.3-10.6); Chloride 100 mMol/L (98-107); Creatinine (Component) 2.7 mg/dL (0.6-1.3); Globulin 1.9 gm/dL (2.3-3.5); Glucose 111 mg/dL (74-106); Osmolality,Calculated 289 (275-295); Potassium 5.2 mMol/L (3.4-5.1); Sodium 139 mMol/L (136-145); Total Protein 5.4 gm/dL (5.7-8.2); eGFR 24 See Note
[2024-05-28 19:17] LABS: Carbon Dioxide < 10.0 mMol/L (20.0-31.0)
--- NOTE | 2024-05-28 20:03 | XR_ITS ---
Examination: AP chest single view Technique: AP portable semiupright chest single view Exam date and time: May 28, 20242011 hrs. Comparison May 28, 2024 1828 hrs. Findings: No change in position left internal jugular central line, tip in the subclavian vein Chest is otherwise unchanged, tracheal tube 4.5 cm above lillian Impression: No change in position left internal jugular central line
[2024-05-28 20:13] LABS: Troponin I 23.339 ng/mL (0.0-0.045)
--- NOTE | 2024-05-28 20:13 | XR_ITS ---
Examination: Abdomen AP single view Technique: AP portable supine abdomen, single view Exam date and time: May 28, 20242014 hrs. Indications: Status post placement orogastric tube Findings: Orogastric tube proximal stomach Mildly air distended stomach Impression: Advance the orogastric tube 5 cm with follow-up KUB
--- NOTE | 2024-05-28 20:22 | PD.RESEVENT ---
Documentation for date of: 05/28/24 Event Note Event Note: ICU Day/Night team had a goals of care discussion with the patient about patient overall condition and poor prognosis due to baseline medical conditions, patient stated that in the past Mr. Kingston stated that he did not want to be dependent on tubes or ventilator and in case something happened he wanted to be DNR, for which she stated that she wanted the patient to remain DNR, we will honor the patient and family wishes. Patient discussed with my attending Dr Saman Nolen MD PGY-3 Disclaimer: Despite multiple revisions, due to the dictation software being used, the document bellow may not be free of grammatical errors including phonetic/typographic errors. However, this does not deter from our commitment to providing health care in the patient's best interest in mind.
--- NOTE | 2024-05-28 20:23 | PC.NURSE ---
1624 ICU team came to see pt. Pt was cold and lethargic , but responsive. Pt was placed in upright position to drink Kayexalate due to pt's potassium being elevated. Pt became light headed and was placed flat in the bed. Pt became unresponsive. Dr. Summers asked that a code blue be called at approx 1630. Pt still had a pulses but then became pulse-less at approx 1632 and chest compressions where initiated. Rosc at 1648. 1850 epi drip started 1641 blood started 1708 Nursing instructed to hold fentanyl drip central line placed to left IJ. Per ICU MDS, Only give emergency meds through this. The line is not good. We will place another one in ICU. ICU MDS notified about blood sugar 68 mg/dl and no prn for hypoglycemia, and about pt waking up and being restless/pulling at lines. Pt started on fentanyl drip , but was still restless. Propofol drip started as well. Last unit of blood hung prior to ICU transfer.
[2024-05-28 21:06] LABS: Reflex Lactate? Y
[2024-05-28] MEDS: EPINEPHrine Inj 16 MG in SODIUM CHLORIDE 0.9% 250 ML 234 ML 27 MG IV (21:30)
[2024-05-28 21:37] LABS: Iron 280 mcg/dL (65-175)
[2024-05-28] MEDS: PANTOPRAZOLE INJ 40 MG VIAL IVP (21:49)
[2024-05-28] MEDS: RINGERS LACTATED 500 ML 500 ML 999 ML IV (22:17)
--- NOTE | 2024-05-28 22:30 | PD.RESEVENT ---
Documentation for date of: 05/28/24 Event Note Event Note: Around 22: 00 pm patient on telemetry strip had ST elevations, I spoke with patient and decision maker Elizabeth Kingston overall patient condition and that now is probably having an AR as well as multiorgan failure, she understood the situation and she stated that she does not want him to be suffering and would like to let him go peacefully and she would like to pursue comfort care measures. I had as a witness on the phone patient nurse Alyssa Todd she corroborates that patient would like to pursue comfort care measures. When asked about if she want to be at the bedside with the patient or will like to wait for family members to arrive to the hospital and she declined the opportunity and will like to start the comfort measures now. Patient discussed with my attending Dr Saman Nolen MD PGY-3 Disclaimer: Despite multiple revisions, due to the dictation software being used, the document bellow may not be free of grammatical errors including phonetic/typographic errors. However, this does not deter from our commitment to providing health care in the patient's best interest in mind.
[2024-05-28] MEDS: MORPHINE SULF INJ 10 MG/ML VIAL 2 MG IVP (23:42)
[2024-05-29] VITALS (7 sets, daily range): BP systolic 58–75; BP diastolic 34–54; PULSE 87–109; RESP 0–28; O2SAT 79–100
[2024-05-29] MEDS: LORazepam 2 MG/ML VIAL 1 MG IVP (00:09)
[2024-05-29] MEDS: MORPHINE SULF INJ 10 MG/ML VIAL 2 MG IVP (00:26)
[2024-05-29] MEDS: Morphine IV Drip 100mg/100ml 100 ML IV (00:35)
--- NOTE | 2024-05-29 01:39 | PD.DPN ---
Documentation for date of: 05/29/24 Pronouncement Note Date and Time of Date of : 05/29/24 Time of : 01:30 Summary Additional details: Called to see patient for unresponsiveness. On exam, the patient was unresponsive, no spontaneous movement was observed, patient did not respond to verbal or noxious stimuli. Auscultated absent heart and breath sounds for more than 2 minutes. Peripheral pulses are absent. Pupils are fixed, dilated, and corneal reflex was absent bilaterally. Patient pronounced at 1:[address] Davison notified. notified and condolences were offered. Patient discussed with my attending Dr Saman Nolen MD PGY-3 Disclaimer: Despite multiple revisions, due to the dictation software being used, the document bellow may not be free of grammatical errors including phonetic/typographic errors. However, this does not deter from our commitment to providing health care in the patient's best interest in mind. Additional Data Attending physician: Semaj Summers MD
--- NOTE | 2024-05-29 07:02 | DES_ITS ---
<Statement entered by Semaj Summers MD - 05/29/24 14:18> TOTAL TIME: 45MINUTES ON DIRECT MEDICAL CARE, MANAGEMENT - COORDINATION AND COUNSELING > 50% OF TOTAL TIME I reviewed the resident?s note and agree with findings and plan as documented in the resident?s note. Documentation for date of: 05/29/24 Summary Date and Time Date of admission: 05/28/24 18:00 Date of : 05/29/24 Time of : 01:30 Summary Hospital Course: Mr Kingston, 74-year-old male with significant past medical history of stage IV metastatic prostate carcinoma, on chemotherapy Xtandi, HTN, HLD, multivessel CAD s/p stent placement in 2019 presented to ED on 05/28/2024 with chief complaint of generalized weakness, after being found unconscious at the ground by the . The patient was a poor historian, and history was obtained from chart review and interviewing patient. The patient also complained of mild pressure- like chest pain and over bilateral shoulders, that he reported had been going on for past few months. He also admitted that he had been having dark tarry stool for past month. During interview, patient passed out and coded. CODE BLUE was initiated, and ICU team present at site started CPR. Patient received multiple doses of 1 mg epinephrine push, followed by multiple shock for V-fib. Patient finally achieved ROSC, and left IJ central line was placed. In the ED, vitals were significant for pulse 94 and RR 29. Labs were significant for hemoglobin 5.9, hematocrit 19.8, PT 15.4 and INR 1.4. VBG was significant for pH 7.26, pCO2 24, pO2 58 and chemistry panel significant for potassium 6.7, bicarb 10.7, anion gap 21, BUN 39, creatinine 2.3, lactic acid 11.3, AST 833, ALT 215, ALP 565, BNP 513, troponin 24.324 and Pro-Glynn 1.16. Initial chest x-ray was suspicious for early pneumonia left base, head CT was negative. The patient received 2 L of IV normal saline bolus, regular insulin 5 units IV x 1, dextrose 50 mL IV x 1, albuterol 5 Mg INH x 1, calcium gluconate 1 g IV x 1 for hyperkalemia, and ICU team was consulted for further management of patient. Around [address] having significant [address] segment elevations over telemetry strips, and Dr. Nolen spoke with patient's and decision maker Elizabeth Kingston regarding overall patient condition and that the patient was probably having an AK as well as multiorgan failure. She understood the situation and she stated that she does not want him to be suffering and would like to let him go peacefully and she would like to pursue comfort care measures. Dr. Nolen had RN Alyssa Todd as an witness that she corroborates that patient would like to pursue comfort care measures. When asked about if she want to be at the bedside with the patient or will like to wait for family members to arrive to the hospital, she declined the opportunity and wanted the patient not to suffer further, and requested to start the comfort measures. The patient was stared on comfort measures. Dr. Nolen was called by RN on duty around 1:25 pm. On exam, the patient was unresponsive, no spontaneous movement was observed, patient did not respond to verbal or noxious stimuli. Auscultated absent heart and breath sounds for more than 2 minutes. Peripheral pulses are absent. Pupils are fixed, dilated, and corneal reflex was absent bilaterally. Patient pronounced at 1:[address] Davison was notified. was notified and condolences were offered. Problems: #S/p cardiac arrest #Hemorrhagic shock #Cardiogenic shock #NSTEMI #Multivessel CAD s/p stents in 2019 #History of hypertension #History of hyperlipidemia #Community-acquired pneumonia #Acute GI bleed #Shock liver #Hyperammonemia #High anion gap metabolic acidosis 2/2 #Severe lactic acidosis #[place]ART[place] #Hyperkalemia #Severe symptomatic acute blood loss anemia #Metastatic prostate cancer The patient's care was discussed with my attending physician MD Jason Garrison MD, PGY2 Additional Data Attending physician: Semaj Summers MD Visit Providers Provider Primary care physician: Massimo Alvarenga MD Consults: 05/28/24 19:25 Consult to Cardiology Stat Comment: NSTEMI Consulting Provider: Kristin Hathaway 05/28/24 22:53 Referral Hospice Stat Comment: Diagnosis PCOD Cause of : Cardiopulmonary arrest Contributing Factors (1) Elevated troponin: (2) Acute hyperkalemia: (3) Acute kidney injury: (4) Elevated lactic acid level: (5) Weakness: (6) Severe anemia: Discharge Plan Plan Patient Disposition: Disposition Comment: Admit ICU Dr. Summers Prescriptions/Referrals Referrals: Massimo Alvarenga MD [Primary Care Provider] - Patient/Caregiver Discharge Instructions Print Language: Welsh Discharge Order Discharge Orders: Discharge (Routine); Ordered 05/29/24 Ordered By: Dannielle Nolen
--- NOTE | 2024-05-29 14:10 | PD.INTPROC ---
Procedures Procedure Date / Time 05/29/24 6770 Intubation Indication(s): acute Resp Failure and other (Cardiac arrest intubated post ROSC) Informed consent obtained: procedure done urgently Time out done, and the following verified: correct patient Sedative: none Laryngoscope: fiber optic video scope Assist device used: other ([place] scope) ET tube size: 7.5 ET tube uncuffed: No Tube secured depth (cm): 22 Tube secured location: teeth Tube placement confirmation: visualized tube passing through cords, equal breath sounds bilaterally and confirmation by capnometry Patient tolerated procedure: no complications EBL(ml): 0 Intubation complications: none
== END 2024-05-29 01:30 | disposition expired ==
LOC: SERX 16:58 → S2SX 05-29 01:54 → SERHOLD 05-29 10:56 → S2SX 05-29 10:56
PROVIDERS: Admitting Provider Internal Medicine; Emergency Provider Emergency Medicine; PCP Family Medicine; Visit Provider Internal Medicine
DX: I21.4 Non-ST elevation (NSTEMI) myocardial infarction (principal); J18.9 Pneumonia, unspecified organism; K72.00 Acute and subacute hepatic failure without coma; J96.00 Acute respiratory failure, unspecified whether with hypoxia or hypercapnia; D62 Acute posthemorrhagic anemia; E87.20 Acidosis, unspecified; C79.51 Secondary malignant neoplasm of bone; N17.9 Acute kidney failure, unspecified; K92.2 Gastrointestinal hemorrhage, unspecified; R57.8 Other shock; R57.0 Cardiogenic shock; C61 Malignant neoplasm of prostate; I46.8 Cardiac arrest due to other underlying condition; E78.5 Hyperlipidemia, unspecified; E87.5 Hyperkalemia; I10 Essential (primary) hypertension; I25.10 Atherosclerotic heart disease of native coronary artery without angina pectoris; Z95.5 Presence of coronary angioplasty implant and graft; I49.01 Ventricular fibrillation; R00.1 Bradycardia, unspecified; Z66 Do not resuscitate; Z51.5 Encounter for palliative care; Z90.79 Acquired absence of other genital organ(s); Z79.82 Long term (current) use of aspirin; Z79.02 Long term (current) use of antithrombotics/antiplatelets; W18.30XA Fall on same level, unspecified, initial encounter
CPT/HCPCS: 36415; 36430; 36600; 70450; 71045; 74018; 80053; 80307; 80320; 81001; 82140; 82607; 82728; 82746; 82803; 83540; 83550; 83605; 83880; 84145; 84484; 85014; 85018; 85025; 85610; 86850; 86900; 86901; 86923; 87040; 87081; 92950; 93005; 93225; 94002; 94003; 94640; 96372; 96374; 99291; 99292; J0171; J0612; J2060; J2270; J2470; J2543; J2704; J3010; J3430; J7030; J7050; J7120; P9016; A9270; G0480